=== PATIENT | male | born 1950 | race Caucasian/White ===

== ENCOUNTER 2018-05-20 18:07 | Emergency (ER) | payer MEDICARE, OTHER ==
--- NOTE | 2018-05-20 18:26 | ED Physician Documentation ---
Upper Respiratory Symptoms - HISTORIAN Historian: patient - HPI Stated Complaint: cough and left lateral rib pain Chief Complaint: Cough/ Upper Respiratory Additional Information: Patient, with history of COPD, HTN, hyperlipidemia, presents to ED with 24 hour history of dry cough and left lateral rib pain after getting flu [facility]. Patient states he coughed all night and began to have left lateral rib pain today. He also started having diarrhea today. He has had 3 stools today. Onset: hours (12 hours) Duration: intermittent episodes Context: other (flu vaccine) Severity: moderate Associated Symptoms: hurts to breathe. denies: fever Worsened by Deep Breath: Yes - ROS CONST/EYES: denies: weakness, eye redness, eye itching, other CVS/RESP: denies: chest pain, shortness of breath LYMPH: denies: leg swelling GI/: diarrhea. denies: abdominal pain NEURO/PSYCH: denies: dizziness MS/SKIN: denies: muscle aches - PAST HX Lung Disease: COPD PE Risk Factors: hypertension Other History: hypertension Surgeries/Procedures: other (carotid stent) Allergies/Adverse Reactions: Allergies Allergy/AdvReac Type Severity Reaction Status Date / Time No Known Allergies Allergy Verified 05/20/18 18:21 Home Medications: Ambulatory Orders Medication Instructions Recorded Azithromycin 500 mg PO DAILY #5 tablet 05/20/18 Montelukast Sodium [Singulair] 10 mg PO HS #30 tablet 05/20/18 predniSONE [Deltasone] 20 mg PO DIRECTED #13 tablet 05/20/18 - SOCIAL HX Smoking History: cigarettes, greater than 1 pack/day Alcohol Use: occasionally Drug Use: none - FAMILY HX Family History: none - VITAL SIGNS Vital Signs: Vital Signs Temp Pulse Resp BP Pulse Ox 77 17 90/55 97 05/20/18 18:07 05/20/18 18:07 05/20/18 18:07 05/20/18 18:07 - REVIEWED ASSESSMENTS Nursing Assessment Reviewed: Yes Vitals Reviewed: Yes Progress - EKG/XRAY/CT EKG: NSR (74 bpm) ED Results Lab/Radiology - Lab Results Lab Results: Lab Results 05/20/18 05/20/18 05/20/18 18:22 18:22 18:22 WBC 8.20 K/ul K/ul (4.00-12.00) RBC 4.52 M/ul M/ul (3.90-5.20) Hgb 13.5 g/dL g/dL (12.0-18.0) Hct 39.7 % % (37.0-53.0) MCV 88.0 fl fl (80.0-100.0) MCH 30.0 pg pg (28.0-34.0) MCHC 34.1 g/dL g/dL (30.0-36.0) RDW 13.6 % % (11.3-14.3) Plt Count 255 K/mm3 K/mm3 (130-400) Neut % (Auto) 40.2 % % (39.0-79.0) Lymph % (Auto) 47.4 % % (16.0-50.0) [place] % (Auto) 5.0 % % (0.0-11.0) Eos % (Auto) 6.9 % H % (0.0-6.8) Baso % (Auto) 0.5 (0.0-1.5) Neut # (Auto) 3.3 # k/uL # k/uL (1.4-7.7) Lymph # (Auto) 3.9 # k/uL # k/uL (0.6-4.0) [place] # (Auto) 0.4 # k/uL # k/uL (0.0-0.9) Eos # (Auto) Pending Baso # (Auto) Pending Sodium 139 mmol/L mmol/L (136-145) Potassium 3.8 mmol/L mmol/L (3.5-5.1) Chloride 102 mmol/L mmol/L (98-107) Carbon Dioxide 28 mmol/L mmol/L (22-30) BUN 9 mg/dL mg/dL (9-20) Creatinine 0.90 mg/dL mg/dL (0.66-1.25) Estimated Creat Clear 80 Est GFR ( Amer) > 60 (60 - ) Est GFR (Non-Af Amer) > 60 (60 - ) Glucose 110 mg/dL H mg/dL (74-106) Calcium 8.9 mg/dL mg/dL (8.4-10.2) Total Bilirubin 0.5 mg/dL mg/dL (0.2-1.3) AST 25 U/L U/L (15-46) ALT 22 U/L U/L (13-69) Alkaline Phosphatase 115 U/L U/L (38-126) Troponin I < 0.03 ng/mL L ng/mL (0.03-0.06) NT-Pro-B Natriuret Pep 134.0 pg/mL H pg/mL (15.0-125.0) Total Protein 7.4 g/dL g/dL (6.3-8.2) Albumin 3.9 g/dL g/dL (3.5-5.0) - Radiology Radiology Impressions: 2 views chest Clinical history: Cough Findings: The heart size at upper limits of normal. The pulmonary vasculature unremarkable. No pleural effusion, pneumothorax or alveolar consolidation. Impression: Negative Electronically signed on May 20, 2018 6:53:48 PM CDT by: Jude Costello - Orders Orders: ED Orders Category Date Time Status Place IV Lock 1T Care 05/20/18 18:12 Active CHEST 2VIEW [RAD] Stat Exams 05/20/18 Completed CBC/PLATELET/DIFF Routine Lab 05/20/18 18:22 Results CMP Routine Lab 05/20/18 18:22 Completed NT-proBNP Stat Lab 05/20/18 18:22 Completed TROPONIN I (cTnI) Stat Lab 05/20/18 18:22 Completed Ipratropium/Albuterol Sulfate [Duoneb] Med 05/20/18 18:28 Discontinued 3 ml NEB NOW ONE methylPREDNISolone SOD SUCC [Solu-MEDROL] Med 05/20/18 18:21 Discontinued 125 mg IVP NOW ONE EKG WITH COMPARISON Stat Ther 05/20/18 Ordered Upper Respiratory Symptoms - EXAM General Appearance: no acute distress, alert EENT: PERRL Neck: supple Respiratory: no resp. distress (scattered expiratory wheezing bilaterally) Abdomen: non-tender, nml bowel sounds CVS: reg rate & rhythm, heart sounds normal Skin: warm,dry Extremities: no edema Neuro/Psych: oriented x3, mood/affect nml Discharge Clincal Impression: Acute exacerbation of chronic obstructive pulmonary disease (COPD) Prescriptions: Azithromycin 500 mg PO DAILY #5 tablet Montelukast Sodium [Singulair] 10 mg PO HS #30 tablet predniSONE [Deltasone] 20 mg PO DIRECTED #13 tablet Referrals: Primary Doctor,No [Primary Care Provider] - 2 Days Comments: Continue to take Benedryl. Use inhalers as directed by PCP. Return to ED if shortness of breath worsens Disposition: 01 HOME, SELF-CARE Decision to Admit: NO Date of Decison to Admit: 05/20/18 Decision Time: 19:22
[2018-05-20 18:32] LABS: BASOPHILS % 0.5 (0.0-1.5); EOSINOPHILS % 6.9 % (0.0-6.8); NEUTROPHILS # 3.3 # k/uL (1.4-7.7)
[2018-05-20] MEDS: IPRATROPIUM/ALBUTEROL SULFATE 3 ML AMPUL.NEB NEB ONE (18:42)
[2018-05-20] MEDS: methylPREDNISolone SOD SUCC 125 MG/2 ML VIAL IVP ONE (18:43)
[2018-05-20 18:57] LABS: eGFR (Non-African) > 60
--- NOTE | 2018-05-20 19:07 | Diagnostic Imaging Report ---
MP EATON [facility] [id number] [facility] [address] [address] Report Submission Date: May 20, 2018 6:53:48 PM CDT Patient Study Name: VIVIEN PITTS Date: May 20, 2018 6:25:38 PM CDT Modality Type: DX Gender: M Description: CHEST : 48 Institution: [facility] Physician: MP EATON 2 views chest Clinical history: Cough Findings: The heart size at upper limits of normal. The pulmonary vasculature unremarkable. No pleural effusion, pneumothorax or alveolar consolidation. Impression: Negative Electronically signed on May 20, 2018 6:53:48 PM CDT by: Jude CHAUDHARY
[2018-05-20 19:50] VITALS: BP 94/59
== END 2018-05-20 19:40 | disposition home or self-care (01) ==
LOC: ED 18:07
DX: J44.1 Chronic obstructive pulmonary disease with (acute) exacerbation (principal); I10 Essential (primary) hypertension; Z86.79 Personal history of other diseases of the circulatory system
CPT/HCPCS: 71046; 80053; 83880; 84484; 85025; 93005; J2930; 94640; 96374; 99284; S1016